=== PATIENT | female | born 1985 | race Caucasian/White ===

== ENCOUNTER 2018-04-05 21:27 | Emergency (ER) | payer BC, OTHER ==
[2018-04-05 22:01] LABS: Bilirubin Negative (Negative); Blood, Urine Small (Negative); Glucose, Urine (Dipstick) Negative (Negative); Leukocyte Negative (Negative); Nitrite Negative (Negative); Protein, Urine (Dipstick) 30 mg/dL (Neg-Trace); Urobilinogen 0.2 mg/dL (0.2-1.0)
[2018-04-05] MEDS ORDERED: Morphine 4 MG/ML VIAL ONE ×2 (22:02→23:16)
[2018-04-05] MEDS ORDERED: Ketorolac Tromethamine 30 MG/ML VIAL ONE (22:02)
[2018-04-05 22:03] LABS: Clarity Hazy (Clear); Pregnancy Test - Urine (BHCG) Negative (Negative); Pregu Control Background? CLEAR/WHITE (CLR/WHITE); Pregu Control Bar Appear? YES (CONTROL BAR); Specific Gravity 1.028 (1.002-1.036); Specific Gravity, Urine 1.028 (1.002-1.036)
[2018-04-05 22:14] LABS: Bacteria/HPF Rare-Few HPF (None Seen); Hyaline Casts/LPF 0-3 HYALINE CAST LPF (0-3 Hyaline); WBC/HPF 0-3 HPF (0-3)
[2018-04-05] MEDS ORDERED: Ondansetron HCl/PF 4 MG/2 ML Vial ONE (22:21)
[2018-04-05 22:22] LABS: ALT (SGPT) 12 U/L (8-55); AST (SGOT) 15 U/L (5-34); Albumin 4.2 g/dL (3.5-5.0); Alkaline Phosphatase 57 U/L (40-150); Anion Gap 14 mmol/L (10-20); BUN (Urea Nitrogen) 10 mg/dL (7.0-18.7); Bilirubin, Total 0.3 mg/dL (0.2-1.2); Calc. Creatinine Clearance 0 mL/min (70-130); Calcium 8.9 mg/dL (7.8-10.44); Carbon Dioxide 17 mmol/L (22-29); Chloride 109 mmol/L (98-107); Estimated GFR-MDRD 90; Globulin 2.7 g/dL (2.4-3.5); Glucose 113 mg/dL (70-105); Lipase 26 U/L (8-78); Potassium 3.8 mmol/L (3.5-5.1); Protein, Total 6.9 g/dL (6.0-8.3); Sodium 136 mmol/L (136-145)
--- NOTE | 2018-04-05 22:28 | CT ---
CT ABDOMEN AND PELVIS NONCONTRAST: 04/05/18 HISTORY: Right flank pain. FINDINGS: The right renal collecting system and ureter are moderately distended to the level of a 0.5 cm calcul us within the distal right ureter. The left renal collecting system, ureter, and the urinary bladder are decompressed. No other stones are visible. Lack of contrast limits evaluation for other abnormalities. Gallbladder is surgically absent. Contrac eptive device within the uterus. IMPRESSION: Partial obstruction at a 5 mm distal right ureteral calculus. POS: SELINA
[2018-04-05 22:31] LABS: Band 6 % (5-11); Hemoglobin 13.2 g/dL (12.0-16.0); Lymphocytes 8 % (21-51); MDiff Complete? YES; Mean Corpuscular HGB CONC 32.6 g/dL (32.0-36.0); Mean Corpuscular Hemoglobin 27.7 pg (27.0-31.0); Mean Corpuscular Volume 85.1 fL (78.0-98.0); Mean Platelet Volume 8.4 fL (7.4-10.4); Monocytes 1 % (0-10); Neutrophil 85 % (42-75); Platelet Count 217 thou/uL (130-400); RBC Distribution Width 11.7 % (11.5-14.5); Red Blood Cell (RBC) Count 4.76 mill/uL (4.20-5.40); White Blood Cell (WBC) Count 22.7 thou/uL (4.8-10.8)
== END 2018-04-05 23:21 | disposition home or self-care (01) ==
LOC: SCSER 21:27
DX: N20.1 Calculus of ureter (principal); I10 Essential (primary) hypertension; F17.210 Nicotine dependence, cigarettes, uncomplicated; Z79.899 Other long term (current) drug therapy
CPT/HCPCS: 74176; 80053; 81003; 81015; 81025; 83690; 85025; 96361; 96374; 96375; 96376; J1885; J2270; J2405

== ENCOUNTER 2018-07-26 21:54 | Emergency (ER) | payer BC ==
[2018-07-26] MEDS ORDERED: Ketorolac Tromethamine 30 MG/ML VIAL ONE (22:18)
[2018-07-26] MEDS ORDERED: Morphine 4 MG/ML VIAL ONE (22:18)
[2018-07-26 22:21] LABS: #Basophils 0.1 thou/uL (0.0-0.2); #Eosinphils 0.4 thou/uL (0.0-0.7); #Lymphocytes 3.4 thou/uL (1.20-3.40); #Monocytes 0.4 thou/uL (0.11-0.59); #Neutrophils 6.9 thou/uL (1.40-6.50); %Basophils 1.1 % (0.0-1.0); %Eosinophils 3.4 % (0.0-10.0); %Lymphocytes 30.4 % (21.0-51.0); %Monocytes 3.9 % (0.0-10.0); %Neutrophils 61.2 % (42.0-75.0); Hemoglobin 14.8 g/dL (12.0-16.0); Mean Corpuscular HGB CONC 33.4 g/dL (32.0-36.0); Mean Corpuscular Hemoglobin 28.6 pg (27.0-31.0); Mean Corpuscular Volume 85.5 fL (78.0-98.0); Mean Platelet Volume 7.2 fL (7.4-10.4); Platelet Count 260 thou/uL (130-400); RBC Distribution Width 12.3 % (11.5-14.5); Red Blood Cell (RBC) Count 5.19 mill/uL (4.20-5.40); White Blood Cell (WBC) Count 11.3 thou/uL (4.8-10.8)
[2018-07-26 22:23] LABS: Bilirubin Negative (Negative); Blood, Urine Moderate (Negative); Clarity Slightly Cloudy (Clear); Glucose, Urine (Dipstick) Negative (Negative); Leukocyte Negative (Negative); Nitrite Negative (Negative); Protein, Urine (Dipstick) Negative (Neg-Trace); Urobilinogen 0.2 mg/dL (0.2-1.0); pH, Urine 5.5 (5.0-9.0)
[2018-07-26 22:26] LABS: Pregnancy Test - Urine (BHCG) Negative (Negative); Pregu Control Background? CLEAR/WHITE (CLR/WHITE); Pregu Control Bar Appear? YES (CONTROL BAR); Specific Gravity 1.022 (1.002-1.036); Specific Gravity, Urine 1.022 (1.002-1.036)
[2018-07-26 22:32] LABS: Bacteria/HPF Rare-Few HPF (None Seen); Hyaline Casts/LPF NONE SEEN LPF (0-3 Hyaline); RBC/HPF 0-3 HPF (0-3); Squamous Epithelial 0-3 HPF (0-3); WBC/HPF 0-3 HPF (0-3)
[2018-07-26 22:38] LABS: ALT (SGPT) 11 U/L (8-55); AST (SGOT) 14 U/L (5-34); Albumin 4.4 g/dL (3.5-5.0); Alkaline Phosphatase 59 U/L (40-150); Anion Gap 13 mmol/L (10-20); BUN (Urea Nitrogen) 12 mg/dL (7.0-18.7); Bilirubin, Total 0.2 mg/dL (0.2-1.2); Calc. Creatinine Clearance 0 mL/min (70-130); Calcium 9.2 mg/dL (7.8-10.44); Carbon Dioxide 20 mmol/L (22-29); Chloride 111 mmol/L (98-107); Estimated GFR-MDRD Greater than 90; Globulin 2.9 g/dL (2.4-3.5); Glucose 83 mg/dL (70-105); Lipase 52 U/L (8-78); Potassium 3.7 mmol/L (3.5-5.1); Protein, Total 7.3 g/dL (6.0-8.3); Sodium 140 mmol/L (136-145)
--- NOTE | 2018-07-26 23:01 | CT ---
NONCONTRAST ENHANCED CT IMAGES ABDOMEN AND PELVIS; 07/26/18 HISTORY: Left flank pain. Noncontrast enhanced CT images of the abdomen and pelvis is obtained. Comparison made to previous exam from 04/05/18. The lung bases are unremarkable. No evidence of free intraperitoneal air seen. The intrauterine device has been removed. There is a tampon seen in the vaginal canal. The right ovary is of normal size. The left ovary is markedly enlarged containing numerous cystic or cystic lesions. The left ovary has three dimensional measurements of 4.4 x 5.1 x 3.8 cm and was signi ficantly smaller on the previous comparison exam. Correlate with elective followup sonography to eval uate the left ovary. A normal appendix is visualized. No dilated loops of bowel seen. The gallbladder has been surgically removed. IMPRESSION: 1. Left ovarian cyst or cystic lesion. Correlate with elective sonography. 2. No evidence of renal calculi or ureteral obstruction seen. POS: PATRICIA
== END 2018-07-26 23:19 | disposition home or self-care (01) ==
LOC: SCSER 21:54
DX: N83.202 Unspecified ovarian cyst, left side (principal); I10 Essential (primary) hypertension; F17.210 Nicotine dependence, cigarettes, uncomplicated; Z87.442 Personal history of urinary calculi; Z79.899 Other long term (current) drug therapy
CPT/HCPCS: 74176; 80053; 81003; 81015; 81025; 83690; 85025; 96361; 96374; 96375; 96376; J1885; J2270

== ENCOUNTER 2019-03-16 09:52 | Inpatient (IN) | payer SELFPAY ==
[2019-03-16 11:22] VITALS: BMI 27.8
[2019-03-16 11:25] LABS: #Eosinphils 0.2 thou/uL (0.0-0.7); #Lymphocytes 2.1 thou/uL (1.20-3.40); #Monocytes 1.2 thou/uL (0.11-0.59); #Neutrophils 13.9 thou/uL (1.40-6.50); %Basophils 0.2 % (0.0-1.0); %Eosinophils 1.1 % (0.0-10.0); %Monocytes 6.7 % (0.0-10.0); Hemoglobin 13.3 g/dL (12.0-16.0); Mean Corpuscular HGB CONC 34.2 g/dL (32.0-36.0); Mean Corpuscular Hemoglobin 29.3 pg (27.0-31.0); Mean Corpuscular Volume 85.5 fL (78.0-98.0); Mean Platelet Volume 7.4 fL (7.4-10.4); Platelet Count 277 thou/uL (130-400); Red Blood Cell (RBC) Count 4.54 mill/uL (4.20-5.40); White Blood Cell (WBC) Count 17.4 thou/uL (4.8-10.8)
[2019-03-16] MEDS ORDERED: Ondansetron PF 4 MG/2 ML Vial SLOW IVP PRN (11:37)
[2019-03-16] MEDS ORDERED: Acetaminophen 325 MG TAB PO PRN (11:37)
[2019-03-16] MEDS ORDERED: Lorazepam 1 MG TAB PO PRN (11:38)
[2019-03-16 11:44] LABS: Lactic Acid 0.8 mmol/L (0.5-2.2)
[2019-03-16 11:46] LABS: BHCG - Serum Negative (NEGATIVE); Pregs Control Background? CLEAR/WHITE (CLR/WHITE); Pregs Control Bar Appear? YES (CONTROL BAR)
[2019-03-16 11:49] LABS: ALT (SGPT) 163 U/L (8-55); AST (SGOT) 93 U/L (5-34); Alkaline Phosphatase 396 U/L (40-110); Anion Gap 12 mmol/L (10-20); BUN (Urea Nitrogen) 9 mg/dL (7.0-18.7); Bilirubin, Total 0.3 mg/dL (0.2-1.2); Calc. Creatinine Clearance 150 mL/min (70-130); Calcium 9.5 mg/dL (7.8-10.44); Carbon Dioxide 21 mmol/L (22-29); Chloride 105 mmol/L (98-107); Estimated GFR-MDRD Greater than 90; Globulin 3.3 g/dL (2.4-3.5); Glucose 98 mg/dL (70-105); Potassium 3.9 mmol/L (3.5-5.1); Protein, Total 7.3 g/dL (6.0-8.3); Sodium 134 mmol/L (136-145)
[2019-03-16] MEDS: HYDROcodone/Acetaminophen 5/325 mg Tablet PO PRN ×3 (12:01→20:14)
[2019-03-16] MEDS: Sodium Chloride 0.9% 1,000 ML IV SCH ×3 (12:03→23:09)
[2019-03-16] MEDS: cefTRIAXone\\ROCEPHIN 1 GM in Sodium Chloride 0.9% 100 ML IVPB SCH (12:08)
[2019-03-16] MEDS: Piperacillin/Tazobactam 3.375 GM in Sodium Chloride 0.9% 100 ML IVPB SCH ×3 (12:09→23:08)
--- NOTE | 2019-03-16 15:49 | CT ---
CT CHEST WITH IV CONTRAST: Date: 03/16/19 HISTORY: Left breast pain and swelling. Hypertension. FINDINGS: Lungs are well inflated. No focal parenchymal mass, infiltrate, pleural fluid, or mediastinal adenopa thy. Enlarged reactive appearing lymph nodes are present at the left axilla. Left nipple appears slightly retracted. Immediately inferior to it, suspected to be at the level of the areola, a superficial oval well circumscribed fluid collection measures up to 4.7 cm length x 2.1 cm depth. There is significan t adjacent skin thickening. This fluid pocket extends deeper to a bilobed inflammatory looking fluid pocket measuring up to 4.3 cm length. There is extensive stranding throughout the interstitium of the left breast. IMPRESSION: Large inflammatory appearing abnormality with cystic/abscess components of the left breast as detaile d above. Given the amount of fluid and extensive fluid stranding, inflammatory/infectious process is favored over neoplastic process, although underlying neoplasm, of course, cannot be excluded with thi s appearance. Based on the other clinical findings, please consider medical treatment of any inflammatory/infectiou s process to resolution before diagnostic breast workup of mammogram and sonogram. Diagnostic breast imaging workup at this point would be very limited due to additional inflammatory findings. If the clinical picture, however, is not that of an infectious process, diagnostic breast imaging wor kup could be performed sooner rather than later. POS: TPC
[2019-03-16] MEDS ORDERED: Fentanyl 100 MCG/2 ML VIAL SLOW IVP PRN (18:04)
[2019-03-16] MEDS: Fentanyl 100 MCG/2 ML VIAL SLOW IVP PRN (21:42)
[2019-03-17] MEDS: Fentanyl 100 MCG/2 ML VIAL SLOW IVP PRN ×5 (00:35→17:26)
[2019-03-17] MEDS: cefTRIAXone\\ROCEPHIN 1 GM in Sodium Chloride 0.9% 100 ML IVPB SCH (00:42)
[2019-03-17] MEDS: HYDROcodone/Acetaminophen 5/325 mg Tablet PO PRN ×3 (01:42→09:57)
[2019-03-17 05:18] LABS: #Basophils 0.1 thou/uL (0.0-0.2); #Eosinphils 0.3 thou/uL (0.0-0.7); #Lymphocytes 2.4 thou/uL (1.20-3.40); #Monocytes 0.8 thou/uL (0.11-0.59); #Neutrophils 11.6 thou/uL (1.40-6.50); %Basophils 0.4 % (0.0-1.0); %Eosinophils 1.8 % (0.0-10.0); %Lymphocytes 15.8 % (21.0-51.0); %Monocytes 5.2 % (0.0-10.0); %Neutrophils 76.8 % (42.0-75.0); Hemoglobin 11.9 g/dL (12.0-16.0); Mean Corpuscular HGB CONC 33.8 g/dL (32.0-36.0); Mean Corpuscular Hemoglobin 29.1 pg (27.0-31.0); Mean Platelet Volume 7.4 fL (7.4-10.4); Platelet Count 252 thou/uL (130-400); RBC Distribution Width 11.1 % (11.5-14.5); Red Blood Cell (RBC) Count 4.09 mill/uL (4.20-5.40); White Blood Cell (WBC) Count 15.1 thou/uL (4.8-10.8)
[2019-03-17 05:40] LABS: ALT (SGPT) 112 U/L (8-55); AST (SGOT) 35 U/L (5-34); Albumin 3.5 g/dL (3.5-5.0); Alkaline Phosphatase 320 U/L (40-110); Anion Gap 12 mmol/L (10-20); BUN (Urea Nitrogen) 9 mg/dL (7.0-18.7); Bilirubin, Total 0.2 mg/dL (0.2-1.2); Calc. Creatinine Clearance 148 mL/min (70-130); Calcium 8.4 mg/dL (7.8-10.44); Carbon Dioxide 22 mmol/L (22-29); Chloride 109 mmol/L (98-107); Estimated GFR-MDRD Greater than 90; Globulin 2.8 g/dL (2.4-3.5); Glucose 100 mg/dL (70-105); Potassium 3.5 mmol/L (3.5-5.1); Protein, Total 6.3 g/dL (6.0-8.3); Sodium 139 mmol/L (136-145)
[2019-03-17] MEDS: Piperacillin/Tazobactam 3.375 GM in Sodium Chloride 0.9% 100 ML IVPB SCH ×2 (06:16→12:21)
[2019-03-17] MEDS: Labetalol 100 MG TAB PO SCH ×2 (08:07→21:11)
[2019-03-17 09:13] LABS: HBCM Index 0.09 S/CO (0-0.79); HBSAg Index 0.19 S/CO (0-0.99); Hep A IgM AB Non-Reactive (NonReactive); Hep B Surf Ag Non-Reactive S/CO (NonReactive); Hep C IgG Ab Non-Reactive (NonReactive); Hep C Index 0.08 S/CO (0-0.79); Hepatitis B Core IgM Abs Non-Reactive (NonReactive)
[2019-03-17] MEDS: Sodium Chloride 0.9% 1,000 ML IV SCH (10:02)
[2019-03-17] MEDS ORDERED: cefTRIAXone\\ROCEPHIN 1 GM in Sodium Chloride 0.9% 100 ML IVPB SCH (12:00)
[2019-03-17 12:40] LABS: Amphetamine Detected (NotDetected); Barbiturates Screen Not Detected (NotDetected); Benzodiazepine Screen Not Detected (NotDetected); Cocaine Metabolite Screen Not Detected (NotDetected); Medtox Control Line Valid? VALID (VALID); Medtox Reader # READER 1; Methadone Not Detected (NotDetected); Methamphetamine Not Detected (NotDetected); Opiate Screen Detected (NotDetected); Oxycodone Screen Not Detected (NotDetected); Phencyclidine (PCP) Not Detected (NotDetected); THC/Cannabinoid Screen Not Detected (NotDetected); Tricyclic Screen Not Detected (NotDetected)
[2019-03-17] MEDS ORDERED: fentaNYL 50 mcg/hour Patch TD SCH (13:00)
[2019-03-17] MEDS ORDERED: Midazolam HCl 2 mg/2 ml Vial ONE (14:11)
[2019-03-17] MEDS ORDERED: HYDROmorphone 0.5 MG/0.5 ML SYRINGE ONE (14:11)
[2019-03-17] MEDS ORDERED: Ibuprofen 600 MG TAB PO PRN (14:12)
[2019-03-17] MEDS ORDERED: traMADol HCl 50 MG TAB PO PRN ×2 (14:12→14:20)
[2019-03-17] MEDS ORDERED: Promethazine HCl 25 MG/ML VIAL ONE (14:12)
[2019-03-17] MEDS ORDERED: Ondansetron ODT 8 MG TAB SL PRN (14:18)
[2019-03-17] MEDS ORDERED: Ondansetron ODT 4 MG TAB PO PRN (14:18)
[2019-03-17] MEDS ORDERED: Acetaminophen 1,000 MG in Premix Bag 1 BAG IVPB PRN (14:18)
[2019-03-17] MEDS ORDERED: Ondansetron ODT 8 MG TAB PO PRN (14:18)
[2019-03-17] MEDS ORDERED: Ketorolac Tromethamine 30 MG/ML VIAL IVP PRN (14:18)
[2019-03-17] MEDS ORDERED: Ketorolac Tromethamine 30 MG/ML VIAL ONE (14:21)
[2019-03-17] MEDS ORDERED: Acetaminophen 1,000 MG in Premix Bag 1 BAG IVPB SCH (14:30)
[2019-03-17] MEDS ORDERED: Ketorolac Tromethamine 30 MG/ML VIAL IVP SCH (14:30)
[2019-03-17] MEDS ORDERED: Acetaminophen 500 MG TAB PO SCH (14:30)
--- NOTE | 2019-03-17 14:33 | CON ---
DATE OF CONSULTATION: HISTORY OF PRESENT ILLNESS: Hilda Islas is a 33-year-old female patient admitted to the hospital from Dr. Hernandez' office at 10 a.m. on 03/16/2019, and consult was written for me but nobody ever called me or notified me of the consult. I found the consult on my computer list at 11:30 p.m., and then today at noon, I was informed by Dr. Hernandez that the patient was in the hospital. The patient 3 years ago had an infection of the left breast, treated with antibiotics. She had a mammogram at that time where she was told had calcifications. Family history for breast cancer, significant that her grandmother had breast cancer. The patient has developed an infection in her left breast. She saw Dr. Bustillo's office, was started on clindamycin. Started these antibiotics a few days ago. She presented to Dr. Hernandez' office, and he immediately admitted her. CT scan of her chest was obtained revealing inflammatory changes and abscess of the left breast. The patient has today received Rocephin and Zosyn. ALLERGIES: NONE. SOCIAL HISTORY: Tobacco one pack per day. Alcohol daily. MEDICATIONS: 1. Phentermine. 2. Topiramate. 3. Normodyne. 4. Clindamycin. 5. Tramadol. OBGYN SPECIALIST HISTORY: She is 3, para 3. PAST MEDICAL HISTORY: Noncontributory. PAST SURGICAL HISTORY: Laparoscopic cholecystectomy, D and C. REVIEW OF SYSTEMS: Noncontributory. She is a full-time mother. PHYSICAL EXAMINATION: VITAL SIGNS: Height 5 feet 3 inches, weight 157 pounds, 27 BMI. Temperature 98.3, heart rate 89, blood pressure 123/81. HEAD, EYES, EARS, NOSE, AND THROAT: Unremarkable. LUNGS: Clear to auscultation. CARDIAC: Regular rate and rhythm. No murmur or gallop. ABDOMEN: Soft and nontender. BREASTS: Right breast normal. Left breast reveals severe mastitis with a cellulitis and a large abscess beneath the areola. She has a retracted nipple and areola, left. Normal nipple and areola, right. LYMPHATICS: No axillary lymphadenopathy. LABORATORY DATA: White count 17 yesterday, 15 this morning. Basic metabolic profile is normal. Hepatitis workup negative. ASSESSMENT/PLAN: 1. Severe left breast abscess and mastitis. Plan incision and drainage today under general anesthesia. Wound was left open for healing by secondary intention. We will obtain cultures. 2. Chronic left nipple-areolar retraction since the of her child 3 years ago. This is chronic. 3. Tobacco abuse. Job ID: [id number]
[2019-03-17] MEDS ORDERED: Bupivacaine HCl 0.5%/Epinephrine 1:200,000/PF 30 ml Vial ONE (14:37)
[2019-03-17] MEDS ORDERED: Promethazine HCl 25 MG/ML VIAL IM PRN (14:57)
[2019-03-17] MEDS ORDERED: Ondansetron HCl/PF 4 MG/2 ML Vial IVP PRN (14:57)
[2019-03-17] MEDS ORDERED: PACU-Morphine 4MG/ML VIAL SLOW IVP PRN (14:57)
[2019-03-17] MEDS ORDERED: HYDROmorphone 2 MG/ML VIAL SLOW IVP PRN (14:57)
[2019-03-17] MEDS ORDERED: Promethazine HCl 25 MG/ML VIAL SLOW IVP PRN (14:57)
[2019-03-17] MEDS: Gabapentin 300 MG CAP PO SCH ×2 (15:57→21:11)
--- NOTE | 2019-03-17 18:56 | OP ---
DATE OF PROCEDURE: 03/17/2019 PREOPERATIVE DIAGNOSIS: Left breast abscess, extensive, recurrent from 3 years ago. POSTOPERATIVE DIAGNOSIS: Left breast abscess, extensive, recurrent from 3 years ago. PROCEDURES PERFORMED: Drainage of left breast abscess, which is extensive. The infra-areolar abscess extending inferiorly and retroareolar superiorly to the upper areolar border, foul-smelling and purulent material copious. Necrotic underlying breast tissue debrided sharply, submitted to Pathology. Culture submitted to Microbiology. Wound packed open for healing by secondary intention. ANESTHESIA: General, local 0.5% Marcaine with epinephrine 30 mL total volume used. DESCRIPTION OF PROCEDURE: The patient was taken to the operating room where under general anesthesia, left breast was prepared with ChloraPrep and draped in routine fashion. Infra-areolar incision made, carried down through skin and subcutaneous tissue, and a large abscess cavity drained. It was foul smelling and thick purulent material. Culture submitted to Microbiology. We then irrigated the wound. I then detected some drainage from deep and then another extension extended retroareolar superiorly. This was broken down, digitally opening this. Necrotic tissue debrided sharply along with some surrounding viable tissue for pathology. Wound irrigated. Good hemostasis noted. Gauze dressing applied. The patient tolerated the procedure well. Job ID: [id number]
[2019-03-17] MEDS ORDERED: Enoxaparin Sodium 40 MG/0.4 ML SYRINGE SC SCH (21:00)
[2019-03-17] MEDS ORDERED: Topiramate 25 MG TAB PO SCH (21:00)
[2019-03-17] MEDS: Cefepime 2 GM in Sodium Chloride 0.9% 100 ML IVPB SCH (21:11)
[2019-03-17] MEDS: traMADol HCl 50 MG TAB PO PRN (21:22)
[2019-03-17] MEDS: Acetaminophen 500 MG TAB PO PRN (21:22)
[2019-03-17] MEDS: Vancomycin HCl 1.5 GM in Sodium Chloride 0.9% 250 ML 300 ML IVPB SCH (23:02)
[2019-03-18 04:50] LABS: #Eosinphils 0.1 thou/uL (0.0-0.7); #Monocytes 1.1 thou/uL (0.11-0.59); #Neutrophils 16.5 thou/uL (1.40-6.50); %Basophils 0.1 % (0.0-1.0); %Eosinophils 0.4 % (0.0-10.0); %Lymphocytes 10.3 % (21.0-51.0); %Monocytes 5.5 % (0.0-10.0); %Neutrophils 83.7 % (42.0-75.0); Hemoglobin 11.5 g/dL (12.0-16.0); Mean Corpuscular HGB CONC 34.4 g/dL (32.0-36.0); Mean Corpuscular Hemoglobin 29.3 pg (27.0-31.0); Mean Platelet Volume 7.9 fL (7.4-10.4); Platelet Count 283 thou/uL (130-400); RBC Distribution Width 10.9 % (11.5-14.5); Red Blood Cell (RBC) Count 3.92 mill/uL (4.20-5.40); White Blood Cell (WBC) Count 19.7 thou/uL (4.8-10.8)
[2019-03-18] MEDS: Vancomycin HCl 1.5 GM in Sodium Chloride 0.9% 250 ML 300 ML IVPB SCH (05:32)
[2019-03-18] MEDS: traMADol HCl 50 MG TAB PO PRN ×2 (05:39→11:49)
[2019-03-18] MEDS: Acetaminophen 500 MG TAB PO PRN ×2 (05:39→11:49)
[2019-03-18] MEDS: Cefepime 2 GM in Sodium Chloride 0.9% 100 ML IVPB SCH (08:48)
[2019-03-18] MEDS: Labetalol 100 MG TAB PO SCH ×2 (08:49→08:50)
[2019-03-18] MEDS: Gabapentin 300 MG CAP PO SCH ×2 (08:49→14:30)
[2019-03-18] MEDS ORDERED: (Phentermine Hcl [Phentermine Hcl] 37.5 MG) PO SCH (09:00)
[2019-03-18] MEDS ORDERED: Polyethylene Glycol 3350 17 GM Packet PO SCH (09:00)
[2019-03-18] MEDS ORDERED: Ibuprofen 600 MG TAB PO PRN (13:25)
--- NOTE | 2019-03-18 13:56 | PRG ---
DATE OF SERVICE: 03/18/2019 Hilda Islas is doing well today. Her dressings removed from left breast wound. The cellulitis is all resolved. Wound looked to 100% better. She is instructed normal saline wet-to-dry dressings after washing the wound daily with soap and water in the bath or shower. She is sent home with Bactrim. She has clindamycin at home already. She will take Tylenol and ibuprofen [id number] for pain, Ultram as needed. She will call the office sooner should she have any problems. We will see her to help her with the dressing. She was instructed and her . The patient understood well dressing care. Job ID: [id number]
[2019-03-18 14:54] VITALS: BP 127/76; TEMP 97.6
[2019-03-18] MEDS ORDERED: Sulfameth/Trimethoprim DS 800-160mg TAB PO SCH (21:00)
--- NOTE | 2019-03-19 11:25 | HP ---
She is a 33-year-old female who was direct admitted from the office. HISTORY OF PRESENT ILLNESS: A 33-year-old female presents today to the office for a left breast pain with possible abscess. She reports on Tuesday she went to an urgent care and was given clindamycin 300 mg t.i.d. In office today, she reports worsening signs and symptoms to the area and reports redness with swelling, tenderness, fatigue, low-grade fever, nausea, and severe pain. The patient reports three years ago this happened and she had a mammogram and was told it was due to calcifications in the breast that was infected. The patient presents today. REVIEW OF SYSTEMS: GENERAL: Generalized fatigue, fever. HEENT: The patient denies any complaints or concerns. NECK: The patient denies any neck stiffness or swelling. RESPIRATORY: The patient denies any shortness of breath, cough, or wheezing. CARDIOVASCULAR: The patient denies any palpitation, diaphoresis, edema, or chest pain. GI: The patient complains of nausea. Denies any abdominal pain or diarrhea or constipation. : The patient denies any frequency or urgency. NEUROMUSCULAR: The patient denies any dizziness or fainting or numbness or tingling. She does complain of back pain on the left side. ENDOCRINE: The patient denies excessive thirst or excessive bruising. SKIN: The patient reports left breast tenderness with redness and swelling. The patient also complains of lymphadenopathy under the left armpit. PSYCHIATRIC: The patient denies anxiety, depression, memory changes, or thoughts of suicide. PAST MEDICAL HISTORY: 1. Hypertension. 2. Depression. 3. Past history of a cellulitis to the left breast. 4. The patient also had a miscarriage back in December with a D and C. PAST SURGICAL HISTORY: 1. Gallbladder being removed in 2006. 2. in 2012. 3. A miscarriage with D and C in 12/2018. SOCIAL HISTORY: The patient is a current every day smoker, smoking less than half a pack a day. Drinks socially. MEDICATIONS: 1. Labetalol 100 mg tablet, take one tablet by mouth 2 times per day for hypertension. 2. The patient takes an Adipex at 37.5 mg by mouth daily for weight loss. 3. The patient also takes Topamax, take one tablet 50 mg by mouth 2 times per day. 4. The patient was prescribed on Tuesday clindamycin 300 mg, take one capsule by mouth 3 times a day. 5. Given tramadol 50 mg tablet, take one tablet by mouth every 6 hours as needed for pain. ALLERGIES: THE PATIENT DOES NOT HAVE ANY ALLERGIES TO ANY MEDICATIONS. DOES NOT HAVE ANY FOOD ALLERGIES OR ENVIRONMENTAL ALLERGIES. PHYSICAL EXAMINATION: VITAL SIGNS: Height of 63 inches, weight 157 pounds, BMI is 27.81. Blood pressure in office is 120/64, temperature was 99.7 orally, pulse was 98 beats per minute, O2 saturation was 97% on room air, and pain was 9/10. GENERAL: The patient appeared in acute pain distress. The patient was slightly pale. She was well dressed. HEENT: She is normocephalic. PERRLA bilaterally. LYMPH NODE AND NECK: Supple. However, small mild lymph nodes were present under the left axilla. RESPIRATORY: Clear to auscultation without rales or rhonchi or wheezing. CARDIOVASCULAR: Normal sinus rhythm with a normal S1 and S2. No murmurs. There is no edema. EXTREMITIES: Warm and well perfused. Cap refill is less than 2. GI/ABDOMEN: Positive bowel sounds. Soft, nondistended, and nontender. NEUROLOGIC: Cranial nerves are intact. Strength and sensation symmetric and intact throughout. Reflexes 2+. SKIN: Involved the left breast and nipple was inverted. There was erythema with swelling and tenderness and heat to the left breast. There was an area that appeared to be abscess like at the 7 o'clock position on the breast. PSYCHIATRIC: The patient's mental examination reveals she was alert and oriented to person, place, and time. She was able to demonstrate good judgment and reason. ASSESSMENT: This is Hilda Islas, a 33-year-old female with diagnosis of cellulitis of the left breast with possible abscess. PLAN OF CARE: A direct admission from the office onto the medical floor, where she will obtain labs, CBC, CMP, blood cultures, lactic acid, serum test. We will be obtaining a CT of the chest with soft tissue with and without contrast. Medications will include home medications as well as IV fluid and we will be giving Rocephin 1 g q.12 h. IV, Zosyn 3.375 g IV q.6 h. The patient will control her pain for pain management control as well as fever control. Serial re-evaluation will be in the morning with Dr. Hernandez and the patient again is admitted for cellulitis with failed outpatient therapy. Job ID: [id number]
== END 2019-03-18 15:25 | disposition home or self-care (01) | DRG 585 ==
LOC: T4-A 10:14
PROVIDERS: ADMIT Specialist; ATTEND Specialist
PROC: 0HBU0ZZ Excision of Left Breast, Open Approach (ICD-10-PCS; principal; 2019-03-17)
PROC: 0H9U0ZZ Drainage of Left Breast, Open Approach (ICD-10-PCS; 2019-03-17)
DX: N61.1 Abscess of the breast and nipple (principal); I10 Essential (primary) hypertension; F32.9 Major depressive disorder, single episode, unspecified; N64.53 Retraction of nipple; N64.1 Fat necrosis of breast; Z79.899 Other long term (current) drug therapy
CPT/HCPCS: 36415; 71260; 80053; 80074; 80306; 83605; 84703; 85025; 87040; 87070; 87205; J0131; J0670; J0692; J0696; J1170; J1650; J1885; J2250; J2405; J2543; J2550; J3010; J3370; J3490; J7050

== ENCOUNTER 2020-04-04 05:25 | Inpatient (IN) | payer BC ==
[2020-04-04 06:01] VITALS: BMI 36.8
[2020-04-04] MEDS ORDERED: Acetaminophen 500 MG TAB PO PRN (06:13)
[2020-04-04] MEDS ORDERED: Lactated Ringer's 1,000 ML IV SCH (06:13)
[2020-04-04] MEDS ORDERED: Promethazine HCl 25 MG/ML VIAL IM PRN ×3 (06:13→11:36)
[2020-04-04] MEDS ORDERED: Ondansetron PF 4 MG/2 ML Vial IVP PRN ×3 (06:13→11:36)
[2020-04-04] MEDS ORDERED: hydrALAZINE 20 MG/ML VIAL SLOW IVP PRN ×2 (06:13→11:36)
[2020-04-04] MEDS ORDERED: Butorphanol Tartrate 1 MG/ML VIAL SLOW IVP PRN (06:13)
[2020-04-04] MEDS ORDERED: Bicitra 30 ML UDCUP PO SCH (06:30)
[2020-04-04] MEDS ORDERED: CEFAZOLIN 2 GM in Premix Bag 1 BAG IVPB SCH (06:30)
[2020-04-04 06:42] LABS: Hemoglobin 12.6 g/dL (12.0-16.0); Mean Corpuscular HGB CONC 33.4 g/dL (32.0-36.0); Mean Corpuscular Hemoglobin 28.9 pg (27.0-31.0); Mean Corpuscular Volume 86.6 fL (78.0-98.0); Mean Platelet Volume 9.6 fL (7.4-10.4); Platelet Count 159 thou/uL (130-400); RBC Distribution Width 12.7 % (11.5-14.5); Red Blood Cell (RBC) Count 4.36 mill/uL (4.20-5.40); White Blood Cell (WBC) Count 17.8 thou/uL (4.8-10.8)
[2020-04-04 07:19] LABS: Syphilis Antibody Nonreactive (Nonreactive); Syphilis Antibody Index 0.04 S/CO (<1.00 Non-Reactive)
[2020-04-04 07:20] LABS: HBSAg Index 0.14 S/CO (0-0.99); Hep B Surf Ag Non-Reactive S/CO (NonReactive)
[2020-04-04] MEDS ORDERED: Ondansetron PF 4 MG/2 ML Vial ONE ×2 (07:27→07:28)
[2020-04-04] MEDS ORDERED: Morphine PF 10 MG/10 ML VIAL ONE (07:27)
[2020-04-04] MEDS ORDERED: ePHEDrine 50 MG/ML VIAL ONE (07:27)
[2020-04-04] MEDS ORDERED: Oxytocin 10 UNITS/ML VIAL ONE (07:27)
[2020-04-04] MEDS ORDERED: PHENYLEPHRINE-NS 100 MCG/ML 10 ML SYRINGE ONE (07:27)
[2020-04-04] MEDS ORDERED: Dexamethasone 4 mg/ml Vial ONE (07:27)
[2020-04-04] MEDS ORDERED: Scopolamine 1.5 mg/72 hour Patch ONE (07:27)
[2020-04-04] MEDS ORDERED: Metoclopramide HCl 10 MG/2 ML VIAL ONE (07:28)
[2020-04-04] MEDS ORDERED: Famotidine/PF 20 mg/2ml Vial ONE (07:28)
--- NOTE | 2020-04-04 07:35 | PDOC.LDHP ---
Labor and Delivery H&P Chief complaint: scheduled section HPI: 35yo at 37w4d by LMP here for RCS and bilateral salpingectomy due to CHTN, SUA, polyhydramnios. No complaints, good FM. No labor sx Current gestational age (weeks): 37 Due date: 04/21/20 Dating criteria: last menstrual period Grav: 5 Para: 3 Abnormal US findings: Yes (SUA, polyhydramnios) Past Medical History: CHTN Current medications: pre-dione vitamins, other (labetalol 100 bid) Previous surgical history: low tranverse CS, cholecystectomy, other (breast I&D) Allergies/Adverse Reactions: Allergies Allergy/AdvReac Type Severity Reaction Status Date / Time No Known Allergies Allergy Verified 04/04/20 06:02 Social history: tobacco use (1/2 ppd) - Physical Exam Vital signs reviewed and normal: yes (mild range bp x 1) General: NAD Heart: RRR Lungs: CTAB Abdomen: gravid Extremeties: no edema FHT: category 1 [place] contractions every: none - OB Labs Blood type: O RH: positive Antibody Screen: negative HIV: negative RPR: negative HEPSAg: negative 1 hour GCT: positive 3 hour GTT: neg for GDM 1/4 values abn GBS: negative Urine drug screen: negative Rubella: immune Additional Labs: neg covid - Assessment L&D Assessment: scheduled repeat section - Plan Plan: admit to L&D, to OR for section, informed consent obtained, anesthesia consult for pain management
--- NOTE | 2020-04-04 07:40 | PDOC.OPDEL ---
OB Operative/Delivery Note Delivery Dr/Surgeon: Mehdi Assist: Christo Pre-Delivery Diagnosis: scheduled section ( and sterilization) Procedure/Post Delivery Dx: repeat low transverse CS (and bilateral salpingectomy) Weeks gestation: 37 Anesthesia: spinal - Findings A Sex: male Weight: 6 lb 5 oz - 1 min: 7 - 5 min: 9 - Additional Findings/Plan Placenta delivered: spontaneous findings: low transverse hysterotomy without extension, normal uterus, normal tubes, normal ovaries Estimated blood loss: 300cc Post delivery plan: routine recovery
[2020-04-04 08:36] LABS: Albumin 3.4 g/dL (3.5-5.0)
[2020-04-04 08:38] LABS: Chloride 107 mmol/L (98-107); Sodium 137 mmol/L (136-145)
[2020-04-04 08:39] LABS: Globulin 2.6 g/dL (2.4-3.5); Glucose 94 mg/dL (70-105)
[2020-04-04 08:40] LABS: Anion Gap 15 mmol/L (10-20); Carbon Dioxide 19 mmol/L (22-29)
[2020-04-04 08:41] LABS: Bilirubin, Total 0.2 mg/dL (0.2-1.2)
[2020-04-04 08:42] LABS: Alkaline Phosphatase 121 U/L (40-110); Calc. Creatinine Clearance 205 mL/min (70-130); Estimated GFR-MDRD Greater than 90
[2020-04-04] MEDS ORDERED: Promethazine HCl 25 MG SUPP PR PRN (08:42)
[2020-04-04] MEDS ORDERED: Naloxone HCl 0.4 mg/ml Vial IVP PRN ×2 (08:42)
[2020-04-04] MEDS ORDERED: diphenhydrAMINE 50 MG/ML VIAL IVP PRN (08:42)
[2020-04-04] MEDS ORDERED: Naloxone HCl 0.4 mg/ml Vial IV PRN (08:42)
[2020-04-04 08:43] LABS: BUN (Urea Nitrogen) 9 mg/dL (7.0-18.7)
[2020-04-04 08:44] LABS: AST (SGOT) 12 U/L (5-34)
[2020-04-04 08:45] LABS: ALT (SGPT) 15 U/L (8-55)
[2020-04-04] MEDS ORDERED: Communication Order-Pharmacy FS SCH (08:45)
[2020-04-04] MEDS ORDERED: Ketorolac Tromethamine 30 MG/ML VIAL ONE (09:02)
[2020-04-04] MEDS ORDERED: Meperidine HCl/PF 25 MG/ML VIAL ONE (09:02)
--- NOTE | 2020-04-04 09:41 | OP ---
DATE OF PROCEDURE: 04/04/2020 PREOPERATIVE DIAGNOSES: 1. Intrauterine at 37 weeks and 4 days. 2. Single umbilical artery. 3. Chronic hypertension. 4. Polyhydramnios. 5. Chronic smoker. 6. Advanced maternal age. 7. Sterilization. 8. Family history of breast cancer. POSTOPERATIVE DIAGNOSES: 1. Intrauterine at 37 weeks and 4 days. 2. Single umbilical artery. 3. Chronic hypertension. 4. Polyhydramnios. 5. Chronic smoker. 6. Advanced maternal age. 7. Sterilization. 8. Family history of breast cancer. PROCEDURES PERFORMED: Repeat low transverse section via Pfannenstiel skin incision and bilateral salpingectomy. SEO INTERN SURGEON: Steven Villafuerte DO, MS ESTIMATED BLOOD LOSS: 500 mL. COMPLICATIONS: None. DRAINS: Kruse catheter. PATHOLOGY: None. FINDINGS: Male infant, cephalic presentation. Copious clear amniotic fluid. Apgars and weight are pending. Single umbilical artery noted. Placenta with a velamentous insertion, removed intact, not sent for pathology. Hysterotomy without extension. Normal ovaries and tubes bilaterally. DESCRIPTION OF PROCEDURE: The patient was taken to the operating room, where spinal anesthesia was obtained without difficulty. The patient was prepped and draped in a sterile fashion in a dorsal supine position with leftward tilt. After ensuring adequacy of anesthesia, a Pfannenstiel skin incision was made and carried down to the underlying subcutaneous tissue with a knife. The fascia was nicked in the midline with a knife, carried laterally with the Bass scissors. The superior aspect of the fascia was tented with two Billy's, dissected off the rectus with the Bass scissors. The inferior aspect of the fascia was tented with 2 Billy's and dissected off the rectus down to the pubic symphysis with the Bass scissors. The rectus was then divided sharply in the midline with the Bass scissors and the peritoneum was bluntly entered into and manually retracted. The Clark O retractor was placed and the lower uterine segment was incised in a transverse fashion and extended with a Cleveland maneuver. The 's head was brought to the hysterotomy with fundal pressure and the copious amniotic fluid was suctioned. The infant was delivered with fundal pressure, and 's cord was clamped and handed to awaiting Prashant team. The placenta was allowed to spontaneously deliver. The uterus was exteriorized, cleared of all clots and debris and placed back into the abdomen. The hysterotomy was repaired with #1 Monocryl in a running locking fashion with excellent hemostasis. A moist warm lap was placed over the hysterotomy and the uterus was delivered out of the abdomen. Again, the left fallopian tube was grasped with a Sierra clamp. Windows were made with the Bovie around the vessels in the mesosalpinx. The vessels were then clamped with hemostats and the proximal fallopian tube was clamped across, the fallopian tube was then incised with the Metzenbaums and sent for pathology. The hemostats were then ligated with a 2-0 chromic and hemostasis was noted. The same procedure was performed on the contralateral side. Hemostasis was noted. The uterus was placed back into the abdomen. The pelvis was irrigated and suctioned. Hemostasis was noted of the hysterotomy and the fallopian tube sites. The Clark O retractor was removed. The rectus muscles were examined and cauterized of any bleeders. The fascia was reapproximated with an 0 PDS x1 suture with excellent reapproximation. The subcutaneous tissue was irrigated and cauterized of any bleeders, reapproximated with 2-0 plain gut in a running fashion. The skin was closed with 4-0 Monocryl in a subcuticular fashion. Dermabond was applied as well as a pressure dressing. The patient tolerated the procedure well. Sponge, lap, and needle counts correct x2. The patient was taken to recovery room in stable condition. Th patient received Ancef 2 g prior to the procedure. Job ID: [id number]
[2020-04-04] MEDS: Ketorolac Tromethamine 30 MG/ML VIAL IVP PRN ×2 (09:56→17:56)
[2020-04-04] MEDS ORDERED: L&D-Morphine 4 MG/ML VIAL SLOW IVP PRN (09:59)
[2020-04-04] MEDS ORDERED: Ondansetron HCl/PF 4 MG/2 ML Vial IVP PRN (09:59)
[2020-04-04] MEDS ORDERED: Meperidine HCl/PF 25 MG/ML VIAL SLOW IVP PRN (09:59)
[2020-04-04] MEDS ORDERED: HYDROmorphone 2 MG/ML VIAL SLOW IVP PRN (09:59)
[2020-04-04] MEDS ORDERED: Ketorolac Tromethamine 30 MG/ML VIAL IVP SCH (10:00)
[2020-04-04] MEDS ORDERED: NS / Oxytocin 40 units/1000ml 1,000 ML ONE (10:09)
[2020-04-04] MEDS ORDERED: Morphine 4 MG/ML VIAL ONE (10:17)
[2020-04-04] MEDS ORDERED: Morphine 4 MG/ML VIAL SLOW IVP PRN (10:24)
[2020-04-04] MEDS ORDERED: diphenhydrAMINE 25 MG CAP PO PRN (11:36)
[2020-04-04] MEDS ORDERED: Simethicone Chewable 80 MG TAB PO PRN (11:36)
[2020-04-04] MEDS ORDERED: Lanolin Ointment 7 GM TUBE TOP PRN (11:36)
[2020-04-04] MEDS ORDERED: Bisacodyl 10 MG SUPP PR PRN (11:36)
[2020-04-04] MEDS ORDERED: Docusate Calcium (SURFAK) 240 MG CAP PO SCH ×2 (12:45→21:00)
[2020-04-04] MEDS ORDERED: Prenatal Vitamin 1 TAB PO SCH (12:45)
[2020-04-04] MEDS ORDERED: Ferrous Sulfate 325 MG TAB PO SCH (12:45)
[2020-04-04] MEDS ORDERED: Adacel (T-DAP) 0.5 ML SYRINGE IM ONE (13:00)
[2020-04-04] MEDS: Ferrous Sulfate 325 MG TAB PO SCH (20:45)
[2020-04-04] MEDS ORDERED: HYDROcodone/Acetaminophen 5/325 mg Tablet PO PRN ×2 (21:00)
[2020-04-04] MEDS ORDERED: Sodium Chloride 0.9% 10 ML ONE (21:28)
[2020-04-05 05:41] LABS: Hemoglobin 11.2 g/dL (12.0-16.0); Mean Corpuscular HGB CONC 34.2 g/dL (32.0-36.0); Mean Corpuscular Hemoglobin 29.5 pg (27.0-31.0); Mean Corpuscular Volume 86.1 fL (78.0-98.0); Mean Platelet Volume 9.9 fL (7.4-10.4); Platelet Count 125 thou/uL (130-400); RBC Distribution Width 12.6 % (11.5-14.5); Red Blood Cell (RBC) Count 3.81 mill/uL (4.20-5.40)
[2020-04-05] MEDS: Ferrous Sulfate 325 MG TAB PO SCH (07:28)
--- NOTE | 2020-04-05 07:42 | PDOC.PP ---
Post Progress Note Post Day #: POD1 Subjective: Doing well. Has been out of room, h/o smoking. No c/o. Wants to be DC to be with baby, baby transfer with TE fistula. PO intake tolerated: yes Flatus: yes Ambulation: yes Vital Signs (12 hours) Temp Pulse Resp BP Pulse Ox 04/05/20 05:13 98.2 F 82 16 124/71 98 04/05/20 00:01 97.1 F L 84 16 122/77 98 04/04/20 20:18 97.7 F 89 16 139/77 98 Weight Weight 94.347 kg - Physical Examination General: NAD Respiratory: non-labored breathing Abdominal: no distention Skin: CS incision dry & intact Neurological: no gross focal deficits Psychiatric: normal affect Result Diagrams: 04/05/20 05:10 04/04/20 06:16 Additional Labs: Post Labs Hep Bs Antigen Non-Reactive S/CO (NonReactive) 04/04/20 06:16 Blood Type O POSITIVE 04/04/20 06:55 - Assessment/Plan DC hospital to be with baby per pt. request. Precautions reviewed. RTC in [address] Harding.
[2020-04-05 08:24] VITALS: BP 126/71; TEMP 97.7
[2020-04-05] MEDS ORDERED: Prenatal Vitamin 1 TAB PO SCH (09:00)
[2020-04-05] MEDS ORDERED: Ibuprofen 800 MG TAB PO SCH (14:00)
== END 2020-04-05 10:15 | disposition home or self-care (01) | DRG 784 ==
LOC: L&D 05:25 → 3SW 12:03
PROVIDERS: ADMIT Student in an Organized Health Care Education/Training Program; ATTEND Student in an Organized Health Care Education/Training Program
PROC: 10D00Z1 Extraction of Products of Conception, Low, Open Approach (ICD-10-PCS; principal; 2020-04-04)
PROC: 0UB70ZZ Excision of Bilateral Fallopian Tubes, Open Approach (ICD-10-PCS; 2020-04-04)
DX: O34.211 Maternal care for low transverse scar from previous cesarean delivery (principal); O10.92 Unspecified pre-existing hypertension complicating childbirth; O75.82 Onset (spontaneous) of labor after 37 completed weeks of gestation but before 39 completed weeks gestation, with delivery by (planned) cesarean section; O99.334 Smoking (tobacco) complicating childbirth; O40.3XX0 Polyhydramnios, third trimester, not applicable or unspecified; O36.8990 Maternal care for other specified fetal problems, unspecified trimester, not applicable or unspecified; Z90.49 Acquired absence of other specified parts of digestive tract; F17.200 Nicotine dependence, unspecified, uncomplicated; Z20.828 Contact with and (suspected) exposure to other viral communicable diseases; Z3A.37 37 weeks gestation of pregnancy; Z37.0 Single live birth; Z30.2 Encounter for sterilization
CPT/HCPCS: 36415; 51702; 80053; 85027; 86780; 86850; 86900; 86901; 87340; 88302; J1100; J1885; J2175; J2270; J2405; J2765; J3490; Q0163; S0028

== ENCOUNTER 2021-10-15 13:33 | Outpatient (CLI) | payer BC | END 2021-10-15 13:34 | disposition home or self-care (01) | LOC: BICMAMMO 13:33 | PROVIDERS: ATTEND Specialist | DX: N63.10 Unspecified lump in the right breast, unspecified quadrant (principal) | CPT/HCPCS: 77066; G0279 ==